=== PATIENT | male | born 1975 | race Caucasian/White ===

== ENCOUNTER 2017-11-11 00:28 | Inpatient (IN) | payer OTHER ==
[~2017-11-11] VITALS: Ht 177.8 cm; Wt 97.3 kg
[2017-11-11] VITALS (7 sets, daily range): BP systolic 93–148; BP diastolic 55–102
[2017-11-11 01:22] LABS: BASOPHILS 0.8 % (0.0-2.0); RDW 15.4 % (10.5-14.5)
[2017-11-11 01:24] LABS: ABSOLUTE NEUTROPHILS 6.5 thou/uL (1.4-8.2); EOSINOPHILS 1.3 % (0.0-3.0); HEMOGLOBIN 9.9 gm/dL (14.0-18.0); LYMPHOCYTES 16.6 % (24.0-44.0); MCH 36.5 pg (26.0-34.0); MCHC 34.2 g/dL (28.0-37.0); MCV 106.5 fL (80.0-100.0); MONOCYTES 8.4 % (1.0-8.0); POLYS 72.9 % (36.0-66.0); RBC 2.72 mil/uL (4.50-6.00); WBC 8.9 thou/uL (4.0-11.0)
[2017-11-11 01:33] LABS: CALCIUM 8.4 mg/dL (8.5-10.1); CREATININE 0.7 mg/dL (0.7-1.3)
[2017-11-11 01:36] LABS: URINE BILIRUBIN 2+ (Negative); URINE BLOOD NEGATIVE (Negative); URINE CLARITY CLEAR; URINE GLUCOSE-RANDOM* NEGATIVE (Negative); URINE KETONES TRACE (Negative); URINE LEUKOCYTES NEGATIVE (Negative); URINE NITRITE NEGATIVE (Negative); URINE PROTEIN (DIPSTICK) TRACE (Negative); URINE SPECIFIC GRAVITY 1.025 (1.005-1.035)
[2017-11-11 01:38] LABS: ICTOTEST (BILI CONFIRMATORY) Positive (Negative); URINE COLOR DARK YELLOW
[2017-11-11 01:39] LABS: ALBUMIN 2.9 g/dL (3.4-5.0); DIRECT BILIRUBIN 3.1 mg/dL (<0.1-0.3); TOTAL BILIRUBIN 4.3 mg/dL (<0.1-1.0); TOTAL PROTEIN 7.5 g/dL (6.4-8.2)
[2017-11-11 02:04] LABS: LARGE PLATELETS RARE; PLATELET COUNT 38 thou/uL (150-400)
[2017-11-11] MEDS ORDERED: TRAMADOL 50 MG50 MG PO (08:43)
[2017-11-11] MEDS ORDERED: VITAMIN B-12500 MCG PO (08:44)
[2017-11-11] MEDS ORDERED: VITAMIN B-1100 M1 PO ×2 (08:44→08:45)
[2017-11-11] MEDS ORDERED: FOLIC ACID1 MG PO (08:44)
[2017-11-11] MEDS ORDERED: ATIVAN0.5 MG PO (08:46)
[2017-11-11 20:50] LABS: CREATININE 0.8 mg/dL (0.7-1.3); MAGNESIUM 1.4 mg/dL (1.8-2.4); POTASSIUM 3.3 mmol/L (3.5-5.1)
[2017-11-12 05:01] VITALS: BP 150/104
[2017-11-12 05:03] LABS: HEMOGLOBIN 8.8 gm/dL (14.0-18.0); WBC 5.3 thou/uL (4.0-11.0)
[2017-11-12 05:04] LABS: HEMATOCRIT 25.9 % (42.0-52.0); MCH 36.1 pg (26.0-34.0); MCHC 33.8 g/dL (28.0-37.0); MCV 106.8 fL (80.0-100.0); PLATELET COUNT 27 thou/uL (150-400); RBC 2.43 mil/uL (4.50-6.00); RDW 15.5 % (10.5-14.5)
[2017-11-12 05:16] LABS: ALBUMIN 2.4 g/dL (3.4-5.0); CALCIUM 8.2 mg/dL (8.5-10.1); CREATININE 0.8 mg/dL (0.7-1.3); POTASSIUM 3.4 mmol/L (3.5-5.1)
[2017-11-12 05:54] LABS: TOTAL PROTEIN 8.7 g/dL (6.4-8.2)
[2017-11-12 07:20] VITALS: BP 143/106
[2017-11-12 08:22] LABS: ABSOLUTE NEUTROPHILS 3.4 thou/uL (1.4-8.2)
[2017-11-12 08:23] LABS: ANISOCYTOSIS 1+; MACROCYTES 1+; PLATELET ESTIMATE MARKEDLY DECREASED; POLYCHROMASIA SLIGHT
[2017-11-12 12:23] VITALS: BP 158/108
[2017-11-12 16:21] LABS: INR 1.5; PROTIME 14.2 Seconds (9.3-11.4)
[2017-11-12 17:18] VITALS: BP 138/95
[2017-11-12 19:32] VITALS: BP 146/93
[2017-11-12 20:55] LABS: MAGNESIUM 1.5 mg/dL (1.8-2.4); POTASSIUM 3.7 mmol/L (3.5-5.1)
[2017-11-13 04:24] VITALS: BP 138/80
[2017-11-13 07:43] VITALS: BP 132/83
[2017-11-13 10:39] VITALS: BP 149/91
[2017-11-13 12:24] VITALS: BP 149/91
== END 2017-11-13 12:55 | disposition home or self-care (01) | DRG 432 ==
LOC: ER 00:28 → 2N 04:06 → EROBS 04:06 → 2N 05:34 → ENTRNSPT 11-13 12:47 → EDTRNSPTSTS 11-13 12:50 → 2N 11-13 12:55
PROVIDERS: Emergency Medicine; Hospitalist; Internal Medicine; Nurse Practitioner; Surgery
DX: K70.10 Alcoholic hepatitis without ascites (principal); K85.90 Acute pancreatitis without necrosis or infection, unspecified; K76.6 Portal hypertension; K81.0 Acute cholecystitis; G89.29 Other chronic pain; E78.5 Hyperlipidemia, unspecified; K70.30 Alcoholic cirrhosis of liver without ascites; D64.9 Anemia, unspecified; D69.6 Thrombocytopenia, unspecified; F10.20 Alcohol dependence, uncomplicated; Z79.899 Other long term (current) drug therapy
CPT/HCPCS: 10081; 10797

== ENCOUNTER 2019-03-30 16:44 | Emergency (ER) | payer BC ==
[~2019-03-30] VITALS: Ht 177.8 cm; Wt 113.4 kg
[~2019-03-30 16:44] MED LIST: ATIVAN0.5 MG PO; FOLIC ACID1 MG PO; TRAMADOL 50 MG50 MG PO; VITAMIN B-1100 M1 PO; VITAMIN B-12500 MCG PO
[2019-03-30] MEDS ORDERED: NEURONTIN 300300 M1 PO (17:07)
[2019-03-30 17:25] LABS: ABSOLUTE NEUTROPHILS 5.4 thou/uL (1.4-8.2); BASOPHILS 1.1 % (0.0-2.0); EOSINOPHILS 3.6 % (0.0-3.0); HEMATOCRIT 37.6 % (42.0-52.0); HEMOGLOBIN 13.2 gm/dL (14.0-18.0); LYMPHOCYTES 20.4 % (24.0-44.0); MCH 34.1 pg (26.0-34.0); MCHC 35.2 g/dL (28.0-37.0); MONOCYTES 8.8 % (1.0-8.0); POLYS 66.1 % (36.0-66.0); RBC 3.87 mil/uL (4.50-6.00); WBC 8.2 thou/uL (4.0-11.0)
[2019-03-30 17:35] LABS: CALCIUM 8.7 mg/dL (8.5-10.1); CREATININE 0.8 mg/dL (0.7-1.3); POTASSIUM 3.9 mmol/L (3.5-5.1)
[2019-03-30 17:38] LABS: APTT 32.3 Seconds (24.5-32.8); INR 1.2; PROTIME 12.9 Seconds (9.3-11.4)
[2019-03-30 17:43] LABS: ALBUMIN 3.4 g/dL (3.4-5.0); TOTAL BILIRUBIN 2.6 mg/dL (<0.1-1.0)
[2019-03-30 18:31] LABS: PLATELET COUNT 94 thou/uL (150-400); PLATELET ESTIMATE SLIGHTLY DECREASED
[2019-03-30 19:09] VITALS: BP 138/91
[2019-03-30] MEDS ORDERED: KEFLEX500 M1 PO (19:12)
== END 2019-03-30 18:30 | disposition home or self-care (01) ==
LOC: ER 16:44
PROVIDERS: Emergency Medicine
DX: S31.115A Laceration without foreign body of abdominal wall, periumbilic region without penetration into peritoneal cavity, initial encounter (principal); D69.6 Thrombocytopenia, unspecified; X58.XXXA Exposure to other specified factors, initial encounter; Y93.89 Activity, other specified; Y92.89 Other specified places as the place of occurrence of the external cause; Y99.8 Other external cause status